=== PATIENT | female | born 1965 | race Caucasian/White ===

== ENCOUNTER 2017-10-20 11:27 | Inpatient (IN) | payer MEDICAID ==
[~2017-10-20] VITALS: Ht 160 cm; Wt 65.8 kg
[~2017-10-20 11:27] MED LIST: ARIP10TA8 PO; FERR-89 PO; MIRT30 PO
[2017-10-20] MEDS ORDERED: PRAZ2 PO (11:46)
[2017-10-20 12:02] LABS: GLUCOSE,POINT OF CARE 249 MG/DL (70-110)
[2017-10-20 12:06] LABS: BASOPHILS % (AUTO) 0.9 % (0.0-2.0); EOSINOPHILS % (AUTO) 0.6 % (1.0-6.0); HEMATOCRIT 36.7 % (36-46); HEMOGLOBIN 12.4 g/dL (12.0-16.0); LYMPHOCYTES # (AUTO) 1.6 K/uL (1.0-4.8); LYMPHOCYTES % (AUTO) 21.9 % (22.0-44.0); MEAN CORPUSCULAR HEMOGLOBIN 32.5 pg (26.0-34.0); MEAN CORPUSCULAR HGB CONC 33.7 G/dL (31.0-37.0); MEAN CORPUSCULAR VOLUME 96 fL (80-100); MONOCYTES # (AUTO) 0.3 K/uL (0.1-1.0); MONOCYTES % (AUTO) 4.8 % (2.0-9.0); NEUTROPHILS # (AUTO) 5.2 K/uL (1.8-7.7); NEUTROPHILS % (AUTO) 71.8 % (40.0-70.0); PLATELET COUNT (AUTO) 284 K/uL (150-450); RED BLOOD CELL COUNT(AUTO) 3.81 MIL/uL (4.00-5.20); RED CELL DISTRIBUTION WIDTH 14.4 % (11.5-14.5)
[2017-10-20 12:17] LABS: ANION GAP 7 mmol/L (8-16); CALCIUM, TOTAL 8.2 mg/dL (8.8-10.5); CARBON DIOXIDE 27 mmol/L (22-29); CHLORIDE 103 mmol/L (98-107); CREATININE 0.86 mg/dL (0.60-1.30); GLOMERULAR FILTR. RATE CALC > 60 mL/min (>60); GLUCOSE,RANDOM 245 mg/dL (70-110); POTASSIUM 4.2 mmol/L (3.5-5.1); SODIUM SERUM 137 mmol/L (136-145); UREA NITROGEN, BLOOD 13 mg/dL (7-18)
[2017-10-20 12:23] LABS: ALANINE AMINOTRANSFERASE 23 U/L (12-78); ALBUMIN 3.5 g/dL (3.4-5.0); ALKALINE PHOSPHATASE 91 U/L (46-116); ASPARTATE AMINOTRANSFERASE 19 U/L (15-37); BILIRUBIN,TOTAL 0.4 mg/dL (0.1-1.0); TOTAL PROTEIN, SERUM 6.8 g/dL (6.4-8.2)
[2017-10-20 12:25] LABS: ACETAMINOPHEN < 2 mcg/mL (10-30)
[2017-10-20] MEDS ORDERED: SODIUM CHLORIDE 0.9% 1,000 ML IV ONE (12:30)
[2017-10-20 12:35] LABS: SALICYLATE 3.3 mg/dL (2.8-20.0)
[2017-10-20 15:10] LABS: AMPHET/METH SCREEN,URINE POSITIVE (NEGATIVE); BARBITURATE SCREEN, URINE NEGATIVE (NEGATIVE); BENZODIAZEPINES SCREEN,URINE NEGATIVE (NEGATIVE); CANNABINOID SCREEN,URINE NEGATIVE (NEGATIVE); COCAINE SCREEN,URINE NEGATIVE (NEGATIVE); METHADONE SCREEN, URINE NEGATIVE (NEGATIVE); OPIATE SCREEN,URINE NEGATIVE (NEGATIVE)
[2017-10-20 15:11] LABS: PHENCYCLIDINE SCREEN,URINE NEGATIVE (NEGATIVE)
[2017-10-20] MEDS ORDERED: LORazepam 1 MG TABLET PO ONE (16:15)
[2017-10-20] MEDS ORDERED: ZOLPIDEM TARTRATE 10 MG TABLET PO PRN (16:30)
[2017-10-20] MEDS ORDERED: INFLUENZA VIRUS VACCINE QVS 2017-18 (3YR+)/PF 60 MCG/0.5 ML SYRINGE IM ONE (19:30)
[2017-10-20] MEDS ORDERED: IBUPROFEN 400 MG TABLET PO PRN (19:30)
[2017-10-20] MEDS ORDERED: ACETAMINOPHEN 325 MG TABLET PO PRN (19:30)
[2017-10-20 19:41] VITALS: BP 102/55
[2017-10-20 19:43] VITALS: BP 102/55
[2017-10-20 20:45] VITALS: BP 113/67
[2017-10-20] MEDS: MIRTAZAPINE 30 MG TABLET PO SCH (20:48)
[2017-10-20] MEDS: PRAZOSIN HCL 2 MG CAPSULE PO SCH (20:50)
[2017-10-20] MEDS ORDERED: MIRTAZAPINE 15 MG TABLET PO SCH (21:00)
[2017-10-21] MEDS: FERROUS SULFATE 325 MG EC TABLET PO SCH ×3 (06:53→17:13)
[2017-10-21 08:55] VITALS: BP 130/77
[2017-10-21] MEDS ORDERED: ARIPiprazole 10 MG TABLET PO SCH (09:00)
[2017-10-21] MEDS: ARIPiprazole 10 MG TABLET PO SCH (09:07)
[2017-10-21] MEDS: LORazepam 2 MG TABLET PO PRN ×2 (09:08→17:13)
[2017-10-21] MEDS: HALOPERIDOL 5 MG TABLET PO PRN ×2 (09:08→17:13)
[2017-10-21] MEDS: NICOTINE 21 MG/24 HOUR PATCH TD SCH (09:10)
[2017-10-21 18:18] VITALS: BP 113/59
[2017-10-21] MEDS ORDERED: IBUPROFEN 400 MG TABLET PO PRN (21:00)
[2017-10-21] MEDS ORDERED: ACETAMINOPHEN 325 MG TABLET PO PRN (21:00)
[2017-10-21] MEDS: PRAZOSIN HCL 2 MG CAPSULE PO SCH (21:14)
[2017-10-21] MEDS: MIRTAZAPINE 30 MG TABLET PO SCH (21:14)
[2017-10-22 05:32] LABS: GLUCOMETER DEV NAME(LOC) 3EI B; GLUCOSE,POINT OF CARE 77 MG/DL (70-110)
[2017-10-22] MEDS: FERROUS SULFATE 325 MG EC TABLET PO SCH ×3 (06:55→16:46)
[2017-10-22 08:30] VITALS: BP 96/52
[2017-10-22] MEDS: ARIPiprazole 10 MG TABLET PO SCH (10:40)
[2017-10-22] MEDS: NICOTINE 21 MG/24 HOUR PATCH TD SCH (10:42)
[2017-10-22] MEDS: HALOPERIDOL 5 MG TABLET PO PRN (16:43)
[2017-10-22] MEDS: LORazepam 2 MG TABLET PO PRN (16:43)
[2017-10-22 16:47] LABS: GLUCOMETER DEV NAME(LOC) 3EI B; GLUCOSE,POINT OF CARE 98 MG/DL (70-110)
[2017-10-22 19:36] VITALS: BP 119/63
[2017-10-22] MEDS: PRAZOSIN HCL 2 MG CAPSULE PO SCH (20:39)
[2017-10-22] MEDS ORDERED: MIRTAZAPINE 15 MG TABLET PO SCH (21:00)
[2017-10-23 06:33] LABS: GLUCOMETER DEV NAME(LOC) 3EI B; GLUCOSE,POINT OF CARE 76 MG/DL (70-110)
[2017-10-23] MEDS: FERROUS SULFATE 325 MG EC TABLET PO SCH (06:56)
[2017-10-23] MEDS: NICOTINE 21 MG/24 HOUR PATCH TD SCH (09:00)
[2017-10-23] MEDS: ARIPiprazole 10 MG TABLET PO SCH (09:44)
[2017-10-23 10:28] VITALS: BP 136/75
[2017-10-23] MEDS ORDERED: FERR-89 PO (10:36)
== END 2017-10-23 11:05 | disposition home or self-care (01) | DRG 751 ==
LOC: EMS 11:28 → 3EI 17:35
PROVIDERS: ADMIT Psychiatry & Neurology Psychiatry; ATTEND Psychiatry & Neurology Psychiatry
DX: F33.2 Major depressive disorder, recurrent severe without psychotic features (principal); R45.851 Suicidal ideations; E83.51 Hypocalcemia; F41.9 Anxiety disorder, unspecified; F60.3 Borderline personality disorder; F10.20 Alcohol dependence, uncomplicated; J44.9 Chronic obstructive pulmonary disease, unspecified; R73.9 Hyperglycemia, unspecified; I10 Essential (primary) hypertension; F43.10 Post-traumatic stress disorder, unspecified; F17.210 Nicotine dependence, cigarettes, uncomplicated; R45.87 Impulsiveness; F15.10 Other stimulant abuse, uncomplicated; Z88.0 Allergy status to penicillin; Z71.41 Alcohol abuse counseling and surveillance of alcoholic; Z71.51 Drug abuse counseling and surveillance of drug abuser; Z91.5 Personal history of self-harm; Z85.42 Personal history of malignant neoplasm of other parts of uterus; Z79.899 Other long term (current) drug therapy
CPT/HCPCS: 82962; 83036; 87081; 90471; 93005; G0480; G0481; J7030

== ENCOUNTER 2023-07-16 09:18 | Inpatient (IN) | payer MEDICAID ==
[~2023-07-16] VITALS: Ht 157.5 cm; Wt 59.0 kg
[~2023-07-16 09:18] MED LIST changes: +ARIP10TA38 PO; -ARIP10TA8 PO; -FERR-89 PO; +FERR325T27 PO; +MIRT-149 PO; -MIRT30 PO
[2023-07-16 12:38] LABS: BASOPHILS % (AUTO) 0.5 % (0.0-2.0); EOSINOPHILS % (AUTO) 1.8 % (1.0-6.0); HEMATOCRIT 36.5 % (36-46); HEMOGLOBIN 12.3 g/dL (12.0-16.0); LYMPHOCYTES # (AUTO) 2.2 K/uL (1.0-4.8); LYMPHOCYTES % (AUTO) 27.4 % (22.0-44.0); MEAN CORPUSCULAR HEMOGLOBIN 33.2 pg (26.0-34.0); MEAN CORPUSCULAR HGB CONC 33.8 G/dL (31.0-37.0); MEAN CORPUSCULAR VOLUME 98 fL (80-100); MONOCYTES # (AUTO) 0.5 K/uL (0.1-1.0); MONOCYTES % (AUTO) 5.9 % (2.0-9.0); NEUTROPHILS # (AUTO) 5.2 K/uL (1.8-7.7); NEUTROPHILS % (AUTO) 64.4 % (40.0-70.0); PLATELET COUNT (AUTO) 319 K/uL (150-450); RED BLOOD CELL COUNT(AUTO) 3.72 MIL/uL (4.00-5.20); WHITE BLOOD COUNT (AUTO) 8.1 K/uL (4.5-11.0)
[2023-07-16 12:57] LABS: ANION GAP 5 mmol/L (8-16); CALCIUM, TOTAL 9.2 mg/dL (8.8-10.5); CARBON DIOXIDE 31 mmol/L (22-29); CHLORIDE 104 mmol/L (98-107); CREATININE 0.55 mg/dL (0.60-1.30); GLOMERULAR FILTR. RATE CALC > 60 mL/min (>60); GLUCOSE,RANDOM 103 mg/dL (70-110); POTASSIUM 4.2 mmol/L (3.5-5.1); SODIUM SERUM 140 mmol/L (136-145); UREA NITROGEN, BLOOD 15 mg/dL (7-18)
[2023-07-16 13:02] LABS: ALANINE AMINOTRANSFERASE 22 U/L (12-78); ALBUMIN 3.4 g/dL (3.4-5.0); ALKALINE PHOSPHATASE 108 U/L (46-116); ASPARTATE AMINOTRANSFERASE 19 U/L (15-37); BILIRUBIN,TOTAL 0.2 mg/dL (0.1-1.0)
[2023-07-16 13:10] LABS: ALCOHOL, BLOOD (SERUM) < 3 mg/dL (0-10)
[2023-07-16] MEDS ORDERED: ZOLPIDEM TARTRATE 10 MG TABLET PO PRN (13:30)
[2023-07-16 15:10] LABS: COVID AG,FIA SOURCE NASAL SWAB
[2023-07-16 15:32] LABS: SARS-COV2 (COVID) ANTIGEN,FIA Negative (Negative)
[2023-07-16] MEDS ORDERED: PERMETHRIN 5% 60 GM CREAM TP ONE (16:45)
[2023-07-16] MEDS: LORazepam 2 MG TABLET PO PRN (17:36)
[2023-07-16 22:20] VITALS: BP 105/60; PULSE 66; RESP 17; TEMP 97.6
[2023-07-17] MEDS ORDERED: INFLUENZA VIRUS VACCINE QVS 2023-24 (6MO+)/PF 60 MCG/0.5 ML SYRINGE IM. ONE (05:30)
[2023-07-17] MEDS ORDERED: PNEUMOCOCCAL VACCINE POLYVALENT 0.5 ML SYRINGE [PPSV23] IM. ONE (05:30)
[2023-07-17] MEDS ORDERED: HALOPERIDOL LACTATE 5 MG/ML VIAL ONE (07:49)
[2023-07-17] MEDS ORDERED: LORazepam 2 MG/ML VIAL ONE (07:49)
[2023-07-17] MEDS ORDERED: DiphenhydrAMINE HCL 50 MG/ML VIAL ONE (07:49)
[2023-07-17] MEDS ORDERED: HALOPERIDOL LACTATE 5 MG/ML VIAL IM ONE (08:00)
[2023-07-17] MEDS ORDERED: DiphenhydrAMINE HCL 50 MG/ML VIAL IM ONE (08:00)
[2023-07-17] MEDS ORDERED: LORazepam 2 MG/ML VIAL IM ONE (08:00)
[2023-07-17 08:21] VITALS: RESP 18
[2023-07-17] MEDS ORDERED: DOCUSATE SODIUM 100 MG CAPSULE PO PRN (15:00)
[2023-07-17] MEDS ORDERED: CloNIDine HCL 0.1 MG TABLET PO PRN (15:00)
[2023-07-17] MEDS ORDERED: BENZOCAINE/MENTHOL LOZENGE PO PRN (15:00)
[2023-07-17] MEDS ORDERED: MAG HYDROX/ALUMINUM HYD/SIMETH ES 30 ML SUSPENSION UDCUP PO PRN (15:00)
[2023-07-17] MEDS ORDERED: OMEPRAZOLE 20 MG CAPSULE PO PRN (15:00)
[2023-07-17] MEDS ORDERED: ACETAMINOPHEN 325 MG TABLET PO PRN (15:00)
[2023-07-17] MEDS ORDERED: LOPERAMIDE HCL 2 MG CAPSULE PO PRN (15:00)
[2023-07-17] MEDS ORDERED: MAGNESIUM HYDROXIDE SUSPENSION 30 ML UDCUP PO PRN (15:00)
[2023-07-17] MEDS ORDERED: ALBUTEROL SULFATE HFA 90 MCG/PUFF 8 GM INHALER IH PRN (15:00)
[2023-07-17] MEDS ORDERED: ONDANSETRON HCL 4 MG TABLET PO PRN (15:00)
[2023-07-17] MEDS ORDERED: PETROLATUM,WHITE 28 GM JELLY TP PRN (15:00)
[2023-07-17] MEDS ORDERED: IBUPROFEN 600 MG TABLET PO PRN (15:00)
[2023-07-17] MEDS ORDERED: BACITRACIN 28 GM OINTMENT TP PRN (15:00)
[2023-07-17 20:24] VITALS: RESP 18
[2023-07-17] MEDS: DIVALPROEX SODIUM 500 MG DR TABLET PO SCH (21:00)
[2023-07-18 08:17] VITALS: RESP 16
[2023-07-18] MEDS: DIVALPROEX SODIUM 500 MG DR TABLET PO SCH ×2 (08:17→21:00)
[2023-07-18] MEDS: ARIPiprazole 10 MG TABLET PO SCH (08:18)
[2023-07-18] MEDS: LORazepam 2 MG TABLET PO PRN (09:43)
[2023-07-18 20:00] VITALS: RESP 17
[2023-07-18] MEDS ORDERED: HALOPERIDOL LACTATE 5 MG/ML VIAL IM ONE (21:15)
[2023-07-18] MEDS ORDERED: DiphenhydrAMINE HCL 50 MG/ML VIAL IM ONE (21:15)
[2023-07-18] MEDS ORDERED: LORazepam 2 MG/ML VIAL IM ONE (21:15)
[2023-07-19 08:05] VITALS: RESP 18
[2023-07-19] MEDS: DIVALPROEX SODIUM 500 MG DR TABLET PO SCH ×2 (09:00→21:00)
[2023-07-19] MEDS: ARIPiprazole 10 MG TABLET PO SCH (09:17)
[2023-07-19] MEDS: LORazepam 2 MG TABLET PO PRN ×2 (09:18→17:21)
[2023-07-19] MEDS: HALOPERIDOL 5 MG TABLET PO PRN (16:23)
[2023-07-19 17:21] VITALS: BP 108/61; PULSE 78; RESP 18
[2023-07-19 21:08] VITALS: PULSE 72; RESP 16; TEMP 97.8
[2023-07-20 08:06] VITALS: BP 113/60; PULSE 74; RESP 17; TEMP 97.6; O2SAT 98
[2023-07-20] MEDS: ARIPiprazole 10 MG TABLET PO SCH (08:34)
[2023-07-20] MEDS: HALOPERIDOL 5 MG TABLET PO PRN ×2 (08:34→14:11)
[2023-07-20] MEDS: LORazepam 2 MG TABLET PO PRN ×3 (08:34→18:29)
[2023-07-20] MEDS: DIVALPROEX SODIUM 500 MG DR TABLET PO SCH ×2 (09:00→20:25)
[2023-07-20] MEDS: NICOTINE 21 MG/24 HOUR PATCH TD SCH (13:35)
[2023-07-20 20:59] VITALS: BP 112/63; PULSE 81; RESP 16; TEMP 97.7; O2SAT 97
[2023-07-21 07:25] VITALS: BP 131/87; PULSE 100; RESP 18; TEMP 98.2; O2SAT 96
[2023-07-21 07:40] VITALS: BP 126/80; PULSE 87; RESP 17; TEMP 98; O2SAT 98
[2023-07-21] MEDS: DIVALPROEX SODIUM 500 MG DR TABLET PO SCH (08:03)
[2023-07-21] MEDS: ARIPiprazole 10 MG TABLET PO SCH (08:03)
[2023-07-21] MEDS: NICOTINE 21 MG/24 HOUR PATCH TD SCH (08:03)
[2023-07-21 08:15] VITALS: BP 130/86; PULSE 86; RESP 18; TEMP 98; O2SAT 99
[2023-07-21] MEDS ORDERED: HALOPERIDOL LACTATE 5 MG/ML VIAL ONE (08:18)
[2023-07-21] MEDS ORDERED: DiphenhydrAMINE HCL 50 MG/ML VIAL ONE (08:19)
[2023-07-21] MEDS ORDERED: LORazepam 2 MG/ML VIAL ONE (08:19)
[2023-07-21 08:45] VITALS: BP 124/78; PULSE 84; RESP 17; TEMP 98.2; O2SAT 98
[2023-07-21 10:00] VITALS: BP 126/74; PULSE 82; RESP 18; TEMP 98; O2SAT 97
[2023-07-21] MEDS ORDERED: DIVA-112 PO (10:14)
== END 2023-07-21 12:25 | disposition home or self-care (01) | DRG 754 ==
LOC: EMS 09:32 → B3A 20:03
PROVIDERS: ADMIT Psychiatry & Neurology Psychiatry; ATTEND Psychiatry & Neurology Psychiatry
DX: F32.9 Major depressive disorder, single episode, unspecified (principal); R45.851 Suicidal ideations; F41.9 Anxiety disorder, unspecified; F43.10 Post-traumatic stress disorder, unspecified; G47.00 Insomnia, unspecified; I10 Essential (primary) hypertension; K59.00 Constipation, unspecified; S80.01XA Contusion of right knee, initial encounter; W18.39XA Other fall on same level, initial encounter; Z20.822 Contact with and (suspected) exposure to COVID-19; B86 Scabies; Y93.89 Activity, other specified; Y92.89 Other specified places as the place of occurrence of the external cause; Y99.8 Other external cause status; Z59.01 Sheltered homelessness; Z87.891 Personal history of nicotine dependence; Z88.0 Allergy status to penicillin
CPT/HCPCS: 80053; 85025; 99285; G0480; J1200; J1630; J2060